=== PATIENT | male | born 1940 | race African-American/Black ===

== ENCOUNTER 2018-12-20 | Emergency (ER) | payer MEDICARE, OTHER ==
[2018-12-20] VITALS: BP 0/0
[~2018-12-20] VITALS: Ht 188 cm; Wt 59.1 kg
[2018-12-20] MEDS ORDERED: SODIUM BICARBONATE [ADULT] 8.4% 50 MEQ/50 ML SYRINGE IVP ONE (00:03)
[2018-12-20] MEDS ORDERED: EPINEPHrine 1:10,000 [1 MG/10 ML] SYRINGE IVP ONE ×2 (00:03)
[2018-12-20] MEDS ORDERED: CALCIUM GLUCONATE 100 MG/ML 10 ML IVP ONE (00:03)
[2018-12-20] MEDS ORDERED: AMIODARONE HCL 50 MG/ML 3 ML VIAL IV ONE (00:03)
== END 2018-12-20 05:29 | disposition expired ==
LOC: EDBD 00:02 → EMS 00:02
DX: I46.9 Cardiac arrest, cause unspecified (principal)
CPT/HCPCS: 31500; 92950; 99291; J0171; J0282; J0610; J3490